=== PATIENT | female | born 1980 | race Caucasian/White ===

== ENCOUNTER 2017-01-25 18:45 | Emergency (ER) | payer OTHER ==
[~2017-01-25] VITALS: Ht 167.6 cm; Wt 76.2 kg
[2017-01-25 21:38] VITALS: BP 136/88
[2017-01-26] MEDS ORDERED: ZOLOFT25 MG PO (09:28)
[2017-01-26] MEDS ORDERED: NAPROSYN500 MG PO (09:28)
[2017-01-26] MEDS ORDERED: CLONAZEPAM 0.50.5 M1 PO (09:29)
[2017-01-26] MEDS ORDERED: XANAX1 MG PO (09:29)
[2017-01-26] MEDS ORDERED: NORCO 5-325 TA1 EACH PO (10:42)
[2017-01-26] MEDS ORDERED: TIZANIDINE HCL4 MG PO (10:42)
== END 2017-01-25 21:38 | disposition home or self-care (01) ==
LOC: ER 18:45
DX: S64.11XA Injury of median nerve at wrist and hand level of right arm, initial encounter (principal); F10.99 Alcohol use, unspecified with unspecified alcohol-induced disorder; Z88.0 Allergy status to penicillin; Z88.6 Allergy status to analgesic agent; V89.2XXA Person injured in unspecified motor-vehicle accident, traffic, initial encounter; Y93.89 Activity, other specified; Y92.89 Other specified places as the place of occurrence of the external cause; Y99.8 Other external cause status

== ENCOUNTER 2017-01-26 09:26 | Emergency (ER) | payer OTHER ==
[~2017-01-26] VITALS: Ht 167.6 cm; Wt 76.2 kg
[2017-01-26] MEDS ORDERED: NAPROSYN500 MG PO (09:28)
[2017-01-26] MEDS ORDERED: ZOLOFT25 MG PO (09:28)
[2017-01-26] MEDS ORDERED: XANAX1 MG PO (09:29)
[2017-01-26] MEDS ORDERED: CLONAZEPAM 0.50.5 M1 PO (09:29)
[2017-01-26] MEDS ORDERED: NORCO 5-325 TA1 EACH PO (10:42)
[2017-01-26] MEDS ORDERED: TIZANIDINE HCL4 MG PO (10:42)
[2017-01-26 10:55] VITALS: BP 123/81
== END 2017-01-26 10:57 | disposition home or self-care (01) ==
LOC: ER 09:26
DX: M79.601 Pain in right arm (principal); F10.99 Alcohol use, unspecified with unspecified alcohol-induced disorder; Z90.710 Acquired absence of both cervix and uterus; Z88.0 Allergy status to penicillin; Z88.5 Allergy status to narcotic agent

== ENCOUNTER 2017-02-09 18:10 | Emergency (ER) | payer OTHER ==
[~2017-02-09] VITALS: Ht 167.6 cm; Wt 76.2 kg
[~2017-02-09 18:10] MED LIST: CLONAZEPAM 0.50.5 M1 PO; NAPROSYN500 MG PO; NORCO 5-325 TA1 EACH PO; TIZANIDINE HCL4 MG PO; XANAX1 MG PO; ZOLOFT25 MG PO
[2017-02-09 18:22] VITALS: BP 122/89
[2017-02-09] MEDS ORDERED: NORCO 5-325 TA1 EACH PO (18:42)
== END 2017-02-09 19:33 | disposition home or self-care (01) ==
LOC: ER 18:10
DX: M25.511 Pain in right shoulder (principal); M25.512 Pain in left shoulder; F41.9 Anxiety disorder, unspecified; F10.99 Alcohol use, unspecified with unspecified alcohol-induced disorder; Z90.710 Acquired absence of both cervix and uterus; Z90.49 Acquired absence of other specified parts of digestive tract; Z88.0 Allergy status to penicillin; Z88.6 Allergy status to analgesic agent

== ENCOUNTER 2017-02-21 14:13 | Emergency (ER) | payer OTHER ==
[~2017-02-21] VITALS: Ht 167.6 cm; Wt 77.1 kg
[2017-02-21 15:03] LABS: ABSOLUTE NEUTROPHILS 2.8 thou/uL (1.4-8.2); BASOPHILS 0.7 % (0.0-2.0); EOSINOPHILS 1.2 % (0.0-3.0); HEMATOCRIT 35.3 % (37.0-47.0); HEMOGLOBIN 12.2 gm/dL (12.0-15.0); LYMPHOCYTES 41.7 % (24.0-44.0); MCHC 34.6 g/dL (28.0-37.0); MCV 95.5 fL (80.0-100.0); MONOCYTES 8.3 % (1.0-8.0); PLATELET COUNT 358 thou/uL (150-400); POLYS 48.1 % (36.0-66.0); RDW 13.6 % (10.5-14.5); WBC 5.8 thou/uL (4.0-11.0)
[2017-02-21 15:04] LABS: MANUAL DIFF NO
[2017-02-21 15:07] LABS: CALCIUM 9.4 mg/dL (8.5-10.1); POTASSIUM 4.1 mmol/L (3.5-5.1)
[2017-02-21 15:13] LABS: ALBUMIN 4.5 g/dL (3.4-5.0); TOTAL BILIRUBIN 0.6 mg/dL (<0.1-1.0); TOTAL PROTEIN 7.9 g/dL (6.4-8.2)
[2017-02-21 15:13] LABS: URINE BILIRUBIN NEGATIVE (Negative); URINE BLOOD NEGATIVE (Negative); URINE COLOR YELLOW; URINE GLUCOSE-RANDOM* NEGATIVE (Negative); URINE KETONES NEGATIVE (Negative); URINE NITRITE NEGATIVE (Negative); URINE PROTEIN (DIPSTICK) NEGATIVE (Negative); URINE SPECIFIC GRAVITY 1.015 (1.003-1.035); URINE UROBILINOGEN 0.2 E.U./dl (0.2-1.0)
[2017-02-21 15:24] LABS: AMP/METHAMP Negative (Negative); BARBITURATES Negative (Negative); BENZODIAZEPINES Negative (Negative); COCAINE Negative (Negative); METHADONE Negative (Negative); OPIATES Negative (Negative); PCP Negative (Negative); THC Negative (Negative)
[2017-02-21 15:31] VITALS: BP 164/72
== END 2017-02-21 16:01 | disposition left against medical advice (07) ==
LOC: ER 14:13
PROVIDERS: Nurse Practitioner Family
DX: Z76.5 Malingerer [conscious simulation] (principal); F41.9 Anxiety disorder, unspecified; Z98.890 Other specified postprocedural states; R10.9 Unspecified abdominal pain

== ENCOUNTER 2020-02-08 21:45 | Emergency (ER) | payer OTHER ==
[~2020-02-08] VITALS: Ht 167.6 cm; Wt 107.7 kg
[2020-02-08] MEDS ORDERED: TRAMADOL 50 MG50 MG PO (21:52)
[2020-02-08] MEDS ORDERED: CYCLOBENZAPRINE10 MG PO (21:52)
[2020-02-08] MEDS ORDERED: IBUPROFEN 800800 M1 PO (22:43)
[2020-02-08 23:43] VITALS: BP 167/111
== END 2020-02-08 23:39 | disposition home or self-care (01) ==
LOC: ER 21:45
DX: S43.402A Unspecified sprain of left shoulder joint, initial encounter (principal); Z90.49 Acquired absence of other specified parts of digestive tract; Z90.710 Acquired absence of both cervix and uterus; Z79.899 Other long term (current) drug therapy; Z88.0 Allergy status to penicillin; Z88.6 Allergy status to analgesic agent; X50.1XXA Overexertion from prolonged static or awkward postures, initial encounter; Y93.89 Activity, other specified; Y92.89 Other specified places as the place of occurrence of the external cause; Y99.8 Other external cause status